=== PATIENT | male | born 1970 | race Caucasian/White ===

== ENCOUNTER 2023-04-20 08:10 | Emergency (ER) | payer OTHER, SELFPAY ==
--- NOTE | ~2023-04-20 | XR_ITS ---
EXAMINATION: XR hand LT min 3V DATE: 04/20/2023 08:53 INDICATION: Swollen warm and erythematous left thumb TECHNIQUE: Posteroanterior, oblique and lateral views of the left hand were obtained. COMPARISON: None. FINDINGS: Alignment is normal. No fracture. 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 Cluster of tiny dystrophic calcifications along the distal margin of the tuft of the left third distal phalanx addit ional tiny calcification dorsal to the base of the second distal phalanx. No evident associated corti kalli erosion or periosteal reaction. Soft tissue swelling about the thumb and thenar eminence. No evid ent soft tissue gas. IMPRESSION: 1. No acute osseous abnormality. 2. Small calcifications along the distal margin of the tuft of the left third distal phalanx and dors al to the base of the second distal phalanx without aggressive features to suggest malignancy which c ould be related to old trauma with differential also including those or parosteal osteochondromatous proliferation (BPOP), juxtacortical osteochondroma and dystrophic calcifications related to crystal d eposition disease. Reviewed, dictated and finalized at location A. II CUTTER IMPRESSION: 1. No acute osseous abnormality. 2. Small calcifications along the distal margin of the tuft of the left third d istal phalanx and dorsal to the base of the second distal phalanx without aggre ssive features to suggest malignancy which could be related to old trauma with differential also including those or parosteal osteochondromatous proliferation (BPOP), juxtacortical osteochondroma and dystrophic calcifications related to crystal deposition disease.
[2023-04-20 08:23] VITALS: BP 148/90; PULSE 72; RESP 16; TEMP 36.7; O2SAT 99
--- NOTE | 2023-04-20 08:40 | ED.UPPEXIN ---
HPI - Extremity Injury (Upper) General Chief Complaint: Extremity Injury, Upper Stated Complaint: left hand swollen Time Seen by Provider: 04/20/23 08:40 Source: patient Mode of arrival: ambulatory Limitations: no limitations History of Present Illness HPI narrative: 52 yo M presents with c/o pain swelling to L thumb for 4 to 5 days. Getting progressively worse. Denies injury. No hx of similar symptoms. Still able to use L thumb but painful. Thought it would be better to continue using L hand and deal with the pain than to rest it. Is a welder gas automatic. Today noticed felt warm to touch. No hx of gout. Was unable to get in to see his PCP. All systems reviewed and negative except as noted above. Related Data Allergies Allergy/AdvReac Type Severity Reaction Status Date / Time No Known Allergies Allergy Verified 04/20/23 08:29 Review of Systems Review of Systems: CONSTITUTIONAL: Denies fever, chills, or sweats. EYES: Denies visual changes, redness, or discharge. ENT: Denies rhinorrhea, congestion, sore throat, or otalgia. CARDIOVASCULAR: Denies chest pain, palpitations, or edema. RESPIRATORY: Denies cough or dyspnea. GASTROINTESTINAL: Denies abdominal pain, nausea, vomiting, or diarrhea. GENITOURINARY: Denies dysuria or hematuria. SKIN: Denies rash or itching. MUSCULOSKELETAL: Denies back pain or myalgia. reports pain and swelling to left thumb. NEUROLOGIC: Denies headache, numbness, or weakness. PSYCHIATRIC: Denies anxiety or depression. All other systems reviewed are negative, except as documented in HPI. PMFSH Comments At time of signature, agree with nursing past medical, surgical, social and family history. There is no relevant family history pertinent to the presenting complaint. Exam Narrative: GENERAL: This is a well-nourished, well-developed patient, in no apparent distress. HEAD: normocephalic, atraumatic. EYES: PERRL. Sclera clear/white. Vision is grossly intact. EARS: External ears normal NOSE: External nose normal NECK: Neck supple, non-tender without lymphadenopathy, masses or thyromegaly. CARDIOVASCULAR: Regular rate and rhythm without murmurs, gallops, or rubs. RESPIRATORY: Clear to auscultation. Breath sounds equal bilaterally. No wheezes, rales, or rhonchi. SKIN: warm, Dry, intact with no suspicious lesions or rash, good texture and turgor. NEURO: awake, alert, and oriented to person, place and time. There were no obvious focal neurologic abnormalities. EXTREMITIES: swelling to L hand, worse to L thumb, with decreased ROM due to swelling. mild warmth to L thumb with some tenderness. no skin abnormalities such as abrasion or laceration. Course Course Level of Care: Express Care Visit Vital Signs Vital signs: Vital Signs Temperature 36.7 C 04/20/23 08:23 Pulse Rate 72 04/20/23 08:23 Respiratory Rate 16 04/20/23 08:23 Blood Pressure 148/90 H 04/20/23 08:23 Pulse Oximetry 99 04/20/23 08:23 Oxygen Delivery Room Air 04/20/23 08:23 Temperature 36.7 C 04/20/23 08:23 Pulse Rate 72 04/20/23 08:23 Respiratory Rate 16 04/20/23 08:23 Blood Pressure 148/90 H 04/20/23 08:23 Pulse Oximetry 99 04/20/23 08:23 Oxygen Delivery Room Air 04/20/23 08:23 reviewed MDM - Extremity Injury (Upper) MDM Narrative Medical decision making narrative: arthritis vs gout. Will treat with prednisone and meloxicam. Discussed x-ray results. Recommend rest, follow up wtih PCP. Patient is aware of diagnosis, understands and agrees to treatment plan. Anticipatory guidance given. Patient agrees to follow-up as directed and is aware of reasons to seek care at the emergency department. Portions of this record may have been created with voice recognition software Imaging Data My impression: Agree with radiologist Radiologist's impression: EXAMINATION: XR hand LT min 3V DATE: 04/20/2023 08:53 INDICATION: Swollen warm and erythematous left thumb TECHNIQUE: Posteroanterior
== END 2023-04-20 09:47 | disposition home or self-care (01) ==
PROVIDERS: Emergency Provider Nurse Practitioner Family
DX: M18.12 Unilateral primary osteoarthritis of first carpometacarpal joint, left hand (principal); M19.042 Primary osteoarthritis, left hand
CPT/HCPCS: 73130; 99213; G0463

== ENCOUNTER 2023-05-24 09:45 | Outpatient (CLI) | payer OTHER, SELFPAY ==
[2023-05-27 12:00] LABS: Kit Draw Collected
== END 2023-05-24 09:46 | disposition home or self-care (01) ==
LOC: ANHGOSHLAB 09:47
PROVIDERS: Visit Provider Emergency Medicine
DX: R53.83 Other fatigue (principal); E66.01 Morbid (severe) obesity due to excess calories; Z68.41 Body mass index [BMI] 40.0-44.9, adult
CPT/HCPCS: 36415

== ENCOUNTER 2023-07-29 07:36 | Outpatient (CLI) | payer OTHER, SELFPAY ==
--- NOTE | 2023-07-29 07:45 | ECHO_ITS ---
Patient Info Name: Jac Balrow Age: 53 years : 1970 Gender: Male Ht: 71 in Wt: 290 lbs BSA: 2.62 m2 HR: 69 bpm BP: 142 / 90 mmHg Technical Quality: Good Exam Date: 07/29/2023 7:58 AM Exam Location: Echo Lab Patient Status: Outpatient Admit Date: 07/29/2023 Staff Ordering Physician: Rodrigo Macedo MD Primer Inserting Machine Adjuster: Christiana Bustos RDCS Attending Provider: Rodrigo Macedo MD Referring Physician: Hellen RODGERS; Exam Type: CA echo doppler color flow Study Info Indications R01.1 - Cardiac murmur, unspecified Complete two-dimensional, color flow and Doppler transthoracic echocardiogram is performed. Strain analysis performed. Summary 1. Complete two-dimensional, color flow and Doppler transthoracic echocardiogram is performed. 2. Left ventricular chamber dimension is normal. 3. Left ventricular systolic function is normal, estimated at 60-65%. 4. There is mild concentric increased left ventricular wall thickness. 5. The left ventricular diastolic function is grade II diastolic dysfunction. 6. E/e' 10 is mildly elevated. 7. Global longitudinal strain is normal at -17.0%. 8. Left atrial chamber dimension is mildly enlarged. 9. The mitral valve has moderately calcified annulus. 10. There is mild mitral valve regurgitation. 11. There is mild tricuspid valve regurgitation. 12. No pulmonary hypertension, estimated pulmonary arterial systolic pressure is 29 mmHg. 13. There is trace pulmonic regurgitation. Left Ventricle E/e' 10 is mildly elevated. Global longitudinal strain is normal at -17.0%. Left ventricular chamber dimension is normal. Left ventricular systolic function is normal, estimated at 60-65%. There is mild concentric increased left ventricular wall thickness. The left ventricular diastolic function is grade II diastolic dysfunction. Right Ventricle Right ventricular systolic function is normal and with normal TAPSE 2.5 cm. Right ventricular chamber dimension is normal. Left Atria Left atrial chamber dimension is mildly enlarged. Right Atria Right atrial chamber dimension is normal. Aortic Valve The aortic valve is trileaflet. There is no aortic valve stenosis. There is no aortic valve regurgitation. Pulmonic Valve There is trace pulmonic regurgitation. Mitral Valve The mitral valve has moderately calcified annulus. There is no mitral valve stenosis. There is mild mitral valve regurgitation. Tricuspid Valve There is mild tricuspid valve regurgitation. No pulmonary hypertension, estimated pulmonary arterial systolic pressure is 29 mmHg. Pericardium/Pleural There is no pericardial effusion. Inferior Vena Cava Normal inferior vena cava with >50% collapse upon inspiration consistent with normal right atrial pressure, 5 mmHg. Aorta The aortic root size at the sinus of Valsalva is normal. Left Ventricular Outflow Tract Name Value Normal LVOT 2D LVOT Diameter 2.1 cm LVOT Doppler LVOT Peak Gradient 6 mmHg LVOT Mean Gradient 3 mmHg LVOT VTI 27 cm LVOT VTI/AV VTI Ratio 1.0 LVOT Stroke Volume 96 ml LVOT CO
== END 2023-07-29 07:37 | disposition home or self-care (01) ==
PROVIDERS: PCP Emergency Medicine; Visit Provider Emergency Medicine
DX: R01.1 Cardiac murmur, unspecified (principal); I34.0 Nonrheumatic mitral (valve) insufficiency; I36.1 Nonrheumatic tricuspid (valve) insufficiency
CPT/HCPCS: 93306

== ENCOUNTER 2023-09-09 02:34 | Day surgery (SDC) | payer OTHER, SELFPAY ==
[2023-08-29 10:06] VITALS: BMI 39.8
[2023-09-09 07:54] VITALS: BP 134/73; PULSE 63; RESP 18; TEMP 36.2; O2SAT 98
[2023-09-09] MEDS: LACTATED RINGERS 1,000 ML 150 ML IV CONT (08:05)
--- NOTE | 2023-09-09 08:39 | PM.HPGS ---
History of Present Illness History of Present Illness Consent: Risks, benefits, and alternatives have been discussed and questions answered. Patient agrees to proceed with procedure. Chief complaint: colon screen Narrative: Jac Barlow is a 53 year old male here for screening colonoscopy, last one 10 years ago Review of Systems Review of Systems: All systems reviewed & are unremarkable except as noted in HPI and below PMFSH Family History Family History Father Diabetes mellitus Hypertension Heart disease Mother Breast cancer Hypertension Heart disease Sibling Diabetes mellitus Hypertension Grandparent Lung cancer Grandparent Hypertension Heart disease Social History Social History Smoking status: Never smoker Alcohol intake: never Substance use: never Substance use type: does not use Do You Feel Safe in your Home?: No Lack of Transportation: No Lack of Food: Sometimes True Current Housing: I Have Housing Concerned About Future Housing: No Difficulty Paying Gas/Electric Bills: No Difficulty Paying for Meds: No Currently Unemployed: No Education: High School Diploma/GED Difficulty w/ Childcare or Family Care: No Living arrangements: with family Spiritual care concerns: No Meds Home Medications and Allergies Home Medications Medication Instructions Recorded Confirmed Type multivitamin 1 tablet PO DAILY 05/24/23 09/09/23 History hydrochlorothiazide 25 mg tablet 25 mg PO DAILY #90 tabs 07/16/23 09/09/23 Rx rosuvastatin 5 mg tablet 5 mg PO DAILY #90 tabs 07/16/23 09/09/23 Rx Allergies Allergy/AdvReac Type Severity Reaction Status Date / Time bee venom protein (honey bee) AdvReac Intermediate Swelling Verified 09/09/23 07:52 Vital Signs Vital Signs - 24 hr 09/09/23 07:54 Temperature 97.1 F L Pulse Rate 63 Respiratory Rate 18 Blood Pressure 134/73 Pulse Oximetry 98 Oxygen Delivery Room Air Exam Const: General: comfortable and no acute distress HENMT: Face/Nose/Sinus: Normal nares present Eyes: General: appearance normal, both eyes and all related structures Neck: Neck: no JVD Resp: Auscultation: clear to auscultation bilaterally Cardio: Rate: regular rate Rhythm: regular rhythm GI: Inspection: non-distended GI Palp: Yes Soft to palpation Skin: General skin exam: normal color Neuro: General: gait normal Speech: normal speech Extrem: General: normal to inspection Psych: Mental Status: mental status grossly normal Assessment and Plan Assessment and plan (1) Screening for colon cancer: Code(s): Z12.11 - Encounter for screening for malignant neoplasm of colon Status: Acute Assessment and Plan: colonoscopy
[2023-09-09 09:01] VITALS: BP 94/61; PULSE 64; RESP 18; O2SAT 97
[2023-09-09 09:11] VITALS: BP 105/59; PULSE 60; RESP 18; O2SAT 98
[2023-09-09 09:21] VITALS: BP 97/38; PULSE 60; RESP 18; O2SAT 98
--- NOTE | 2023-09-09 09:34 | P.PNAN_ITS ---
Anes - Initial Pre Proc Eval Procedure: Operation Date: 09/09/23 09:00 Proposed Procedures p Screening Colonoscopy - Brandon Johnson MD Date/Time: 09/09/23 09:34 Surgeon: Brandon Johnson MD Pre Op Diagnosis: colon screen Patient Data Age: 53 Gender: M Height: 1.8 m Weight: 124.3 kg Last Vital Signs Temp 97.1 F L 09/09/23 07:54 Pulse 60 09/09/23 09:21 Resp 18 09/09/23 09:21 BP 97/38 L 09/09/23 09:21 Pulse Ox 98 09/09/23 09:21 O2 Del Method Room Air 09/09/23 09:21 Allergies Allergy/AdvReac Type Severity Reaction Status Date / Time bee venom protein (honey bee) AdvReac Intermediate Swelling Verified 09/09/23 07:52 Home Medications Medication Instructions Recorded Confirmed Type multivitamin 1 tablet PO DAILY 05/24/23 09/09/23 History hydrochlorothiazide 25 mg tablet 25 mg PO DAILY #90 tabs 07/16/23 09/09/23 Rx rosuvastatin 5 mg tablet 5 mg PO DAILY #90 tabs 07/16/23 09/09/23 Rx Patient hx anesthesia problems: none Family hx anesthesia problems: none Results Review: All pre-operative results and documents have been reviewed as part of the pre- operative evaluation. [facility] [place] Family History Family History Father Diabetes mellitus Hypertension Heart disease Mother Breast cancer Hypertension Heart disease Sibling Diabetes mellitus Hypertension Grandparent Lung cancer Grandparent Hypertension Heart disease Social History Social History Smoking status: Never smoker Alcohol intake: never Substance use: never Substance use type: does not use Do You Feel Safe in your Home?: No Lack of Transportation: No Lack of Food: Sometimes True Current Housing: I Have Housing Concerned About Future Housing: No Difficulty Paying Gas/Electric Bills: No Difficulty Paying for Meds: No Currently Unemployed: No Education: High School Diploma/GED Difficulty w/ Childcare or Family Care: No Living arrangements: with family Spiritual care concerns: No Anes - Eval Final PreProcedure Day of Procedure 09/09/23 09:34 Patient weight: obese Heart: regular rate and rhythm Lungs: clear to auscultation Airway: Mallampati scale class II Neurological: alert and oriented Last oral intake: >/= 8 hours ASA classification: III Emergent: no Anesthetic plan: proceed Anesthesia type and monitoring: general GIVS and standard monitoring Results Review: All pre-operative results and documents have been reviewed as part of the pre- operative evaluation. Informed Consent: The patient's anesthetic plan and its attendant risks and benefits were discussed with the patient/family/POA. Questions were solicited and answers provided to the satisfaction of the patient/family/POA.
== END 2023-09-09 09:30 | disposition home or self-care (01) ==
PROVIDERS: PCP Emergency Medicine; Visit Provider Internal Medicine Gastroenterology
PROC: 0DJD8ZZ Inspection of Lower Intestinal Tract, Via Natural or Artificial Opening Endoscopic (ICD-10-PCS; CPT 45378; principal; 2023-09-09 09:00)
DX: Z12.11 Encounter for screening for malignant neoplasm of colon (principal); K63.5 Polyp of colon; K64.8 Other hemorrhoids; E66.9 Obesity, unspecified; Z68.38 Body mass index [BMI] 38.0-38.9, adult; Z80.3 Family history of malignant neoplasm of breast; Z80.1 Family history of malignant neoplasm of trachea, bronchus and lung; Z82.49 Family history of ischemic heart disease and other diseases of the circulatory system
CPT/HCPCS: 45385; 88305; J2704; J7120

== ENCOUNTER 2024-05-11 09:38 | Outpatient (CLI) | payer OTHER, SELFPAY ==
--- NOTE | ~2024-05-11 | US_ITS ---
EXAMINATION: US right upper quadrant DATE: 05/11/2024 09:55 INDICATION: Abnormal labs TECHNIQUE: Multiple grayscale and Doppler ultrasound images of the abdomen were obtained. COMPARISON: None FINDINGS: The pancreatic head and body are normal in appearance. The pancreatic tail is not visualized. Liver has normal contour, with a smooth surface. Liver has normal contour, with a smooth surface. There is increased parenchymal echogenicity and coarsened echotexture consistent with diffuse hepatic steatosi s. 1.4 x 1.3 x 1.3 cm hypoechoic region of focal fatty sparing along the gallbladder fossa. 1.1 cm an echoic hepatic cyst. No intrahepatic biliary duct dilation suspected. Portal venous flow was seen in the hepatopetal, normal direction and has normal Doppler waveform. The gallbladder is normal in appe arance. There is no cholelithiasis. The common bile duct measures 5 mm, which is normal. Sonographic Barr sign was reported as negative by the barman.Visualized portion of the right kidney demon strates normal contour and echogenicity with no hydronephrosis. IMPRESSION: 1. Diffuse hepatic steatosis. No intra or extrahepatic biliary ductal dilation. Reviewed, dictated and finalized at location B. COMMUNICATION TOWER TECHNICIAN
== END 2024-05-11 09:39 | disposition home or self-care (01) ==
LOC: GOSHIMG 09:38
PROVIDERS: PCP Family Medicine; Visit Provider Family Medicine
DX: K76.0 Fatty (change of) liver, not elsewhere classified (principal); R74.8 Abnormal levels of other serum enzymes
CPT/HCPCS: 76705